=== PATIENT | female | born 1980 ===

== ENCOUNTER 2017-12-13 05:30 | Emergency (ER) | payer OTHER ==
[2017-12-13 05:31] VITALS: BMI 36.2
[2017-12-13 05:51] VITALS: TEMP 98.7
[2017-12-13] MEDS ORDERED: Sodium Chloride 0.9% 500 ML IV ONE ×2 (06:05→06:23)
[2017-12-13 06:18] LABS: BASO % 0.5 % (0.0-2.0); EOS # 0.3 K/uL (0.0-0.7); EOS % 3.1 % (0.0-4.0); HEMOGLOBIN 11.5 g/dL (11.0-16.0); LYMPH % 21.2 % (20.0-40.0); MEAN CELL VOLUME 78.6 fL (81.0-99.0); MEAN CORPUSCULAR HEMOGLOBIN 25.8 pg (27.0-31.0); MEAN CORPUSCULAR HGB CONC 32.8 g/dL (33.0-37.0); MEAN PLATELET VOLUME 9.1 fL (7.2-11.7); MONO # 0.9 K/uL (0.0-0.8); MONO % 9.3 % (0.0-10.0); NEUT # 6.1 K/uL (1.8-7.0); NEUT % 65.9 % (50.0-75.0); RBC 4.47 Mil/uL (3.80-5.20); RED CELL DISTRIBUTION WIDTH 14.4 % (11.5-14.5); WHITE BLOOD COUNT 9.3 K/uL (4.8-10.8)
--- NOTE | 2017-12-13 06:19 | C.PDOC ---
History Of Present Illness 37 year old female with PMHx of headache presents to the ED c/o headache, dizziness, nausea. Patient reports his symptoms this time feel different from before. 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 Patient denies blurry vision, weakness, numbness, injury, fall, trauma. Time Seen by Provider: 12/13/17 05:53 Chief Complaint (Nursing): Dizziness/Lightheaded History Per: Patient History/Exam Limitations: no limitations Onset/Duration Of Symptoms: Hrs Current Symptoms Are (Timing): Still Present Activity At Onset Of Symptoms: Lying Associated Symptoms Preceding Syncopal Episode: Lightheadedness Seizure Or Post-ictal Symptoms: None Fall Associated With With Symptoms: No Severity: None Recent travel outside of the [place]: No Additional History Per: Patient Past Medical History Reviewed: Historical Data, Nursing Documentation, Vital Signs Vital Signs: Last Vital Signs Temp 98.7 F 12/13/17 05:40 Pulse 79 12/13/17 05:40 Resp 20 12/13/17 05:40 BP 143/78 12/13/17 05:40 Pulse Ox 99 12/13/17 06:33 - Medical History PMH: HTN, Hypothyroidism, Migraine, Rheumatoid Arthritis Denies: Chronic Kidney Disease Surgical History: No Surg Hx Family History: States: Unknown Family Hx - Social History Hx Alcohol Use: No Hx Substance Use: No Review Of Systems Constitutional: Negative for: Fever, Chills Eyes: Negative for: Vision Change Cardiovascular: Negative for: Chest Pain Respiratory: Negative for: Shortness of Breath Gastrointestinal: Negative for: Nausea, Vomiting Neurological: Positive for: Headache, Dizziness. Negative for: Weakness, Numbness Physical Exam - Physical Exam Appears: Non-toxic, No Acute Distress Skin: Normal Color, Warm, Dry Head: Atraumatic, Normacephalic Eye(s): bilateral: Normal Inspection, PERRL, EOMI Oral Mucosa: Moist Neck: Normal ROM, Supple Chest: Symmetrical Cardiovascular: Rhythm Regular Respiratory: Normal Breath Sounds, No Rales, No Rhonchi, No Wheezing Gastrointestinal/Abdominal: Soft, No Tenderness, No Guarding, No Rebound Extremity: Normal ROM, No Tenderness, No Swelling Neurological/Psych: Oriented x3, Normal Speech, Normal Motor, Normal Sensation, Other (no nystagmus) Gait: Steady ED Course And Treatment - Laboratory Results Result Diagrams: 12/13/17 06:15 12/13/17 06:15 ECG: Interpreted By Me (at 84), Viewed By Me (dr reyes) ECG Rhythm: Sinus Rhythm, Nonspecific Changes ECG Interpretation: No Acute Changes O2 Sat by Pulse Oximetry: 99 (ON RA) Pulse Ox Interpretation: Normal Progress Note: Plan: - CT head. - EKG. - Labs. - Reglan 10 mg IVP. - IV fluids. - Toradol 30 mg IVP. Patient is resting comfortably, is tolerating PO , and no longer has headache, neurologic deficit, photophobia, rash, fever, or nuchal rigidity. Patient was instructed to follow up with physician/clinic in 1 -2 days. Reevaluation Time: 07:01 Reassessment Condition: Improved (Pt feels better,in no distress. 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 - Scribe Statement The provider has reviewed the documentation as recorded by the Scribe Kevin Hanson All medical record entries made by the Scribe were at my direction and personally dictated by me. I have reviewed the chart and agree that the record accurately reflects my personal performance of the history, physical exam, medical decision making, and the department course for this patient. I have also personally directed, reviewed, and agree with the discharge instructions and disposition. Physician Patient Turnover Patient Signed Over To: Giselle Jc Handoff Comments: Please follow head CT
[2017-12-13 06:30] LABS: ALB/GLOB RATIO 1.6 (1.0-2.1); ALBUMIN 3.7 g/dL (3.5-5.0); ALT/SGPT 39 U/L (9-52); AST/SGOT 25 U/L (14-36); BLOOD UREA NITROGEN 18 mg/dL (7-17); GFR AFRICAN-AMERICAN > 60; GFR NON-AFRICAN AMERICAN > 60
[2017-12-13 09:12] VITALS: PULSE 82; RESP 18
--- NOTE | 2017-12-13 10:26 | CT ---
PROCEDURE: CT HEAD WITHOUT CONTRAST. HISTORY: Headache COMPARISON: None available. TECHNIQUE: Axial computed tomography images were obtained through the head/brain without intravenous contrast. Radiation dose: Total exam DLP = 820.6 mGy-cm. This CT exam was performed using one or more of the following dose reduction techniques: Automated exposure control, adjustment of the mA and/or kV according to patient size, and/or use of iterative reconstruction technique. FINDINGS: HEMORRHAGE: No acute parenchymal, subarachnoid or extra-axial hemorrhage. BRAIN: No mass effect or edema. No atrophy or chronic microvascular ischemic changes. VENTRICLES: Unremarkable. No hydrocephalus. CALVARIUM: Unremarkable. PARANASAL SINUSES: Unremarkable as visualized. No significant inflammatory changes. MASTOID AIR CELLS: Unremarkable as visualized. No inflammatory changes. OTHER FINDINGS: None. IMPRESSION: No acute intracranial hemorrhage.
[2017-12-13 10:41] VITALS: BP 142/81; O2SAT 98
--- NOTE | 2017-12-13 13:22 | CARD ---
APPROVED REPORT EKG Measurement Heart [id number] <Conclusion> Normal sinus rhythm Nonspecific T wave abnormality Borderline EKG
== END 2017-12-13 10:51 | disposition home or self-care (01) ==
LOC: C.ER 05:30
DX: R51 Headache (principal); I10 Essential (primary) hypertension
CPT/HCPCS: 70450; 80053; 84703; 85025; 93005; 96374; 96375; 99285; J1885; J2765; J7040